=== PATIENT | male | born 1975 | race Caucasian/White ===

== ENCOUNTER 2021-05-03 14:19 | Emergency (ER) | payer OTHER ==
[2021-05-03] MEDS ORDERED: Sodium Chloride 0.9% 2.5 ML Syringe FLUSH PRN (14:26)
[2021-05-03] MEDS ORDERED: Sodium Chloride 0.9% 10 ML Syringe FLUSH PRN (14:26)
[2021-05-03] MEDS ORDERED: Sodium Chloride 0.9% 1,000 ML IV ONE (15:42)
[2021-05-03] MEDS ORDERED: Thiamine 100 MG Tab PO ONE (16:02)
[2021-05-03] MEDS ORDERED: Folic Acid 1 MG Tab PO ONE (16:02)
== END 2021-05-03 18:47 | disposition home or self-care (01) ==
LOC: MW.ED 14:19
DX: D53.9 Nutritional anemia, unspecified (principal); R18.8 Other ascites; Z88.0 Allergy status to penicillin
CPT/HCPCS: 36415; 36430; 85014; 85018; 85610; 85730; 86850; 86900; 86901; 86920; 99284; A9270; J7030; P9016

== ENCOUNTER 2023-09-18 02:56 | Emergency (ER) | payer OTHER | END 2023-09-18 03:11 | LOC: MW.ED 02:56 | DX: Z02.89 Encounter for other administrative examinations (principal); I10 Essential (primary) hypertension; Z88.0 Allergy status to penicillin; Z86.19 Personal history of other infectious and parasitic diseases; Z75.8 Other problems related to medical facilities and other health care | CPT/HCPCS: 99281; 99283 ==

== ENCOUNTER 2025-01-08 06:41 | Emergency (ER) | payer SELFPAY | END 2025-01-08 07:25 | LOC: MW.ED 06:41 | DX: R05.9 Cough, unspecified (principal); I10 Essential (primary) hypertension; J45.909 Unspecified asthma, uncomplicated; Z88.0 Allergy status to penicillin; Z79.899 Other long term (current) drug therapy | CPT/HCPCS: 71045; 99283; J8540 ==